=== PATIENT | male | born 1975 | race Caucasian/White ===

== ENCOUNTER 2020-09-23 08:49 | Emergency (ER) | payer BC ==
[~2020-09-23] VITALS: Ht 180.3 cm; Wt 113.4 kg
[2020-09-23] MEDS ORDERED: Bamlanivimab 700 MG in NS 275 ML IVPB SCH (09:00)
[2020-09-23] MEDS ORDERED: Bamlanivimab Fact Sheet MISC ONE (09:00)
[2020-09-23 09:16] VITALS: BP 130/80
--- NOTE | 2020-09-23 09:18 | NUR ---
ED Nurse Note:pt. came from home , covid positive, fever, he will receive iv infusion, VSS, placed in isolation room, blood sent to labs, given IV meds
--- NOTE | 2020-09-23 09:24 | Emergency Room Report ---
History of Present Illness General Chief Complaint: General Complaint Source: Patient Present Illness HPI Patient presents with complaints of positive Covid test and continued congestion Body ache general fatigue and malaise Complains of headache Denies any neck pain or photophobia patient complains of increased nausea vomiting Denies any diarrhea Denies any focal weakness denies any visual changes Patient does have positive Covid test from 2 days ago and has had symptoms as mentioned above for the past 7 days Allergies: Coded Allergies: No Known Allergies (Unverified , 09/23/20) COVID-19 Screening Contact w/high risk pt: Yes Experienced COVID-19 symptoms?: Yes COVID-19 Testing performed NURSE ADVOCATE: Yes COVID-19 Screening: Positive COVID-19 COVID-19 Testing Source: nasal Patient History Past Medical History: see triage record Pertinent Family History: none Reviewed Nursing Documentation: PMH: Agreed; PSxH: Agreed Nursing Documentation-PMH Past Medical History: No Stated History Review of Systems All Other Systems: negative except mentioned in HPI Physical Exam Vital Signs Date Time Temp Pulse Resp B/P (MAP) Pulse Ox O2 Delivery O2 Flow Rate FiO2 09/23/20 08:53 100.0 106 18 130/80 (97) 96 Room Air Sp02 EP Interpretation: reviewed, normal General Appearance: well appearing, no apparent distress Head: normocephalic, atraumatic Eyes: bilateral eye PERRL, bilateral eye EOMI ENT: hearing grossly normal, normal pharynx, TMs + canals normal, uvula midline Neck: full range of motion, supple, no meningismus, no bony tend Respiratory: lungs clear, normal breath sounds, no rhonchi, no respiratory distress, no retraction, no accessory muscle use Cardiovascular #1: normal peripheral pulses, regular rate, rhythm, no edema, no gallop, no JVD, no murmur Gastrointestinal: normal bowel sounds, non tender, soft, no mass, no organomegaly, non-distended, no guarding, no hernia, no pulsatile mass, no rebound Genitourinary: no CVA tenderness Musculoskeletal: back normal, normal range of motion Neurologic: motor strength/tone normal, 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, oriented x3, sensory intact, responsive Psychiatric: mood/affect normal Skin: no rash Lymphatic: normal inspection, no adenopathy Medical Decision Making Diagnostic Impression: Primary Impression: covid Additional Impression: monoclonal infusion ER Course Given the patient's history and presentation multiple differentials were considered including but not limited to Covid pneumonia, URI dehydration patient has extensive testing initiated, Imaging and blood work patient meets criteria given the BMI of 35 With positive Covid test and symptoms less than 10 days Given this information patient was presented with the monoclonal antibody option and he would like to receive the medication He understands that this is an EUA medication Patient has infusion as noted above Has done well And will have close outpatient follow-up with primary physician tomorrow Labs Test 09/23/20 09:05 White Blood Count 4.0 K/UL (4.8-10.8) Red Blood Count 5.41 M/UL (4.70-6.10) Hemoglobin 14.6 G/DL (14.2-18.0) Hematocrit 43.6 % (42.0-52.0) Mean Corpuscular Volume 81 FL (80-99) Mean Corpuscular Hemoglobin 27.1 PG (27.0-31.0) Mean Corpuscular Hemoglobin Concent 33.6 G/DL (32.0-36.0) Red Cell Distribution Width 12.2 % (11.6-14.8) Platelet Count 165 K/UL (150-450) Mean Platelet Volume 7.7 FL (6.5-10.1) Neutrophils (%) (Auto) 60.0 % (45.0-75.0) Lymphocytes (%) (Auto) 32.6 % (20.0-45.0) Monocytes (%) (Auto) 7.0 % (1.0-10.0) Eosinophils (%) (Auto) 0.1 % (0.0-3.0) Basophils (%) (Auto) 0.4 % (0.0-2.0) Sodium Level 138 MMOL/L (136-145) Potassium Level 4.0 MMOL/L (3.5-5.1) Chloride Level 101 MMOL/L (98-107) Carbon Dioxide Level 31 MMOL/L (21-32) Anion Gap 6 mmol/L (5-15) Blood Urea Nitrogen 16 mg/dL (7-18) Creatinine 1.5 MG/DL (0.55-1.30) Estimat Glomerular Filtration Rate 50.8 mL/min (>60) Glucose Level 99 MG/DL (74-106) Calcium Level 9.1 MG/DL (8.5-10.1) Total Bilirubin 0.4 MG/DL (0.2-1.0) Aspartate Amino Transf (AST/SGOT) 30 U/L (15-37) Alanine Aminotransferase (ALT/SGPT) 30 U/L (12-78) Alkaline Phosphatase 46 U/L (46-116) Total Protein 7.3 G/DL (6.4-8.2) Albumin 3.5 G/DL (3.4-5.0) Globulin 3.8 g/dL Albumin/Globulin Ratio 0.9 (1.0-2.7) Chest X-Ray Diagnostic Results Chest X-Ray Diagnostic Results : Chest X-Ray Ordered: Yes # of Views/Limited/Complete: 1 View Indication: Shortness of Breath EP Interpretation: Yes Interpretation: no effusion, no pneumothorax, other - Minimal bilateral lower markings Impression: Other - minimal lower bilateral markings consider early infiltrate Electronically Signed by: Donal Whiting DO Last Vital Signs Date Time Temp Pulse Resp B/P (MAP) Pulse Ox O2 Delivery O2 Flow Rate FiO2 09/23/20 09:16 100.0 105 18 130/80 96 Room Air Status: improved Disposition: HOME, SELF-CARE Condition: Improved Referrals: PMD Patient Instructions: Upper Respiratory Infection, Adult, [id number] Additional Instructions: follow up pmd in 1 day. Return sooner with any concerns Donal Whiting DO Sep 23, 2020 09:23
[2020-09-23 09:25] LABS: BASOPHILS % (AUTO) 0.4 % (0.0-2.0); EOSINOPHILS % (AUTO) 0.1 % (0.0-3.0); HEMATOCRIT 43.6 % (42.0-52.0); HEMOGLOBIN 14.6 G/DL (14.2-18.0); LYMPHOCYTES % (AUTO) 32.6 % (20.0-45.0); MEAN CORPUSCULAR VOLUME 81 FL (80-99); PLATELET COUNT 165 K/UL (150-450); RED BLOOD COUNT 5.41 M/UL (4.70-6.10); RED CELL DISTRIBUTION WIDTH 12.2 % (11.6-14.8)
[2020-09-23] MEDS ORDERED: Ketorolac 30mg Inj IV ONE (09:30)
[2020-09-23 09:43] LABS: CALCIUM 9.1 MG/DL (8.5-10.1); CREATININE 1.5 MG/DL (0.55-1.30)
[2020-09-23 09:47] LABS: ALBUMIN 3.5 G/DL (3.4-5.0); ALBUMIN/GLOBULIN RATIO 0.9 (1.0-2.7); BILIRUBIN,TOTAL 0.4 MG/DL (0.2-1.0)
--- NOTE | 2020-09-23 10:00 | NUR ---
ED Nurse Note:started iv infusion, pt. tolerating well, continue to monitor
[2020-09-23 10:38] VITALS: BP 109/75
[2020-09-23 12:10] VITALS: BP 109/75
--- NOTE | 2020-09-23 12:10 | NUR ---
ED Nurse Note: Pt cleared by health care Provider for discharge. DC instructions was given and explained to pt and verbalized understanding of teachings. All medical deviecs such as ID band removed. Pt is AAO x4, ambulatory and left with all personal belongings.
--- NOTE | 2020-09-23 13:32 | Diagnostic Imaging Report ---
Indication: Shortness of breath Technique: One view of the chest Comparison: none Findings: There bilateral interstitial and possibly airspace infiltrates versus edema. The heart is borderline enlarged. The pleural spaces are clear. Impression: Bilateral infiltrates versus edema. Correlate with clinical findings Borderline cardiomegaly
== END 2020-09-23 12:10 | disposition home or self-care (01) ==
LOC: EMR 09:21
DX: U07.1 COVID-19 (principal); R51.9 Headache, unspecified; R53.83 Other fatigue; Z23 Encounter for immunization
CPT/HCPCS: 36415; 71045; 80053; 85025; 96365; 96375; 99284; J1100; J1885; J2405; J7040; J7050; Q0239; S0028